=== PATIENT | female | born 1980 | race Caucasian/White ===

== ENCOUNTER 2021-03-20 11:33 | Outpatient (CLI) | payer SELFPAY ==
--- NOTE | ~2021-03-20 | MMUS_ITS ---
EXAMINATION: MM diagnostic sarah BI w mike, US breast BI complete HISTORY: Right breast lump TECHNIQUE: ML, MLO and craniocaudal 3-D tomosynthesis images of both breasts were performed and synth etic 2-D images were generated. Bilateral rotated lateral CC views. CAD analysis was submitted and in terpreted. High resolution complete bilateral breast ultrasound including all 4 quadrants and subareo lar area of was performed. COMPARISON: None BREAST PARENCHYMAL COMPOSITION: The breasts are extremely dense, which lowers the sensitivity of mamm ography. FINDINGS: MAMMOGRAPHIC FINDINGS: There are numerous benign calcifications scattered in both breasts. Bilateral circumscribed breast masses are noted, some with halo sign, likely representing bilateral b reast cysts, including a particularly large up to 5 cm probable upper outer quadrant right breast cys ts corresponding to area of clinical complaint of breast lump. Bilateral complete breast ultrasound e xamination was performed. No malignant calcification, architectural distortion, skin thickening or retraction is detected in ei ther breast. ULTRASOUND: There are numerous bilateral simple and septated and complicated breast cysts, with circumscribed mar gins and with through transmission posterior enhancement and no internal vascularity. An up to 4.6 cm cyst is noted at 10:00 position 7 cm from nipple in the right breast, corresponding to the area of c linical complaint. No suspicious mass or shadowing of either breast is detected. IMPRESSION: 1. Numerous bilateral breast cysts, some simple, some septated and some complicated; no mammographic evidence of malignancy 2. Routine mammographic screening is recommended, with ultrasound as required BI-RADS Category 2: Benign finding(s). Reviewed, dictated and finalized at location A. INE ROUGH ROUNDER IMPRESSION: 1. Numerous bilateral breast cysts, some simple, some septated and some complic ated; no mammographic evidence of malignancy 2. Routine mammographic screening is recommended, with ultrasound as required BI-RADS Category 2: Benign finding(s).
== END 2021-03-20 11:34 | disposition home or self-care (01) ==
PROVIDERS: Visit Provider Advanced Practice Midwife
DX: Z12.31 Encounter for screening mammogram for malignant neoplasm of breast (principal); N63.11 Unspecified lump in the right breast, upper outer quadrant
CPT/HCPCS: 76641; 77062; 77066; G0279

== ENCOUNTER → 2022-03-17 12:43 | Outpatient (CLI) | payer SELFPAY ==
--- NOTE | ~2022-03-17 | US_ITS ---
EXAMINATION: US soft tissue groin RT DATE: 03/17/2022 13:13 INDICATION: Other intra-abdominal and pelvic swelling, mass and lump. TECHNIQUE: Multiple sonographic images of the right inguinal region were obtained. COMPARISON: None. FINDINGS: There is a 1.9 x 0.8 cm mass in right inguinal region. IMPRESSION: 1. Small mass in right inguinal region, which may be a normal lymph node or small hematoma. Reviewed, dictated and finalized at location A. NG TIER IMPRESSION: 1. Small mass in right inguinal region, which may be a normal lymph node or sma ll hematoma.
== END ==
DX: R19.09 Other intra-abdominal and pelvic swelling, mass and lump (principal)
CPT/HCPCS: 76882

== ENCOUNTER 2022-05-19 09:58 | Outpatient (CLI) | payer SELFPAY ==
--- NOTE | ~2022-05-19 | MM_ITS ---
EXAMINATION: MM screening sarah BI w mike HISTORY: Screening TECHNIQUE: Craniocaudal and mediolateral oblique 3-D tomosynthesis images were obtained and synthetic 2-D images were generated. CAD analysis was submitted and interpreted. COMPARISON: Comparison to multiple prior studies sequentially, with oldest reviewed study dated 02/16. BREAST PARENCHYMAL COMPOSITION: The breasts are extremely dense, which lowers the sensitivity of mamm ography FINDINGS: There are scattered benign-appearing bilateral breast calcifications. There are multiple bi lateral breast masses which are obscured by dense fibroglandular tissue. IMPRESSION: 1. Developing bilateral breast masses which are obscured. 2. Complete bilateral breast ultrasound recommended. BI-RADS Category 0: Incomplete: Needs additional imaging evaluation. Reviewed, dictated and finalized at location A. ING INSPECTOR
== END 2022-05-19 09:59 | disposition home or self-care (01) ==
LOC: ANHIMG 10:10
PROVIDERS: PCP Registered Nurse
DX: Z12.31 Encounter for screening mammogram for malignant neoplasm of breast (principal); R92.8 Other abnormal and inconclusive findings on diagnostic imaging of breast
CPT/HCPCS: 77063; 77067

== ENCOUNTER → 2022-05-26 08:24 | Outpatient (CLI) | payer SELFPAY ==
--- NOTE | ~2022-05-26 | CT_ITS ---
EXAMINATION: CT pelvis w con DATE: 05/26/2022 08:49 INDICATION: Right inguinal mass. TECHNIQUE: Computed tomography (CT) of the pelvis was performed with 100 mL Omnipaque 350 intravenous contrast. Automated exposure control and iterative reconstruction technique were employed. The dose- length product was 209.67 mGy-cm. COMPARISON: Ultrasound 03/17/2022 FINDINGS: There is physiologic fluid in the pelvis. There are no dilated loops of bowel. There are no pathologically enlarged lymph nodes. There is a 1.2 x 1.2 cm cyst in right inguinal canal. There is mild lumbar spondylosis. IMPRESSION: 1. 1.2 cm cyst in right inguinal canal, likely ascites in a small hernia. Reviewed, dictated and finalized at location A. E PLUG CUTTER OPERATOR HELPER
== END ==
PROVIDERS: PCP Registered Nurse; Visit Provider Registered Nurse
DX: R19.09 Other intra-abdominal and pelvic swelling, mass and lump (principal)
CPT/HCPCS: 72193; Q9967

== ENCOUNTER → 2022-06-09 09:53 | Outpatient (CLI) | payer SELFPAY ==
--- NOTE | ~2022-06-09 | US_ITS ---
US breast BI complete DATE: 06/09/2022 10:50 INDICATION: Bilateral breast masses reported on May 19, 2022 screening mammogram TECHNIQUE: Real-time and color flow imaging of both complete breasts including all 4 quadrants and razo bareolar areas COMPARISON: May 19, 2022 bilateral screening mammogram March 20, 2021 bilateral diagnostic mammogram and bilateral complete breast ultrasound examination FINDINGS: Again noted are multiple bilateral breast cysts, largest on the right situated at 12-1:00 3 cm from the nipple, measuring up to 1.7 x 6.5 cm. Another right breast cysts at 8-9:00 5 cm from the nipple measures up to 1.6 x 5.4 cm. The largest cyst on the left is situated at 9:00-10:00 5 cm from the nipple, measuring up to 3 x 3.4 x 0.9 cm. No suspicious solid lesion or suspicious shadowing or vascularity is noted. IMPRESSION: BI-RADS Category 2: Benign Recommendation: Routine mammographic screening Reviewed, dictated and finalized at Location A. Reviewed, dictated and finalized at location A. SKEWER
== END ==
PROVIDERS: PCP Registered Nurse
DX: R92.8 Other abnormal and inconclusive findings on diagnostic imaging of breast (principal)
CPT/HCPCS: 76641

== ENCOUNTER 2023-06-08 08:17 | Outpatient (CLI) | payer SELFPAY ==
--- NOTE | ~2023-06-08 | MMUS_ITS ---
EXAMINATION: MM diagnostic sarah BI w mike, US breast BI complete HISTORY: Palpable right breast lump TECHNIQUE: Additional 3-D tomosynthesis images of the breasts were performed and synthetic 2-D images were generated. CAD analysis was submitted and interpreted. High resolution complete bilateral breas t ultrasound was performed. COMPARISON: Comparison to multiple prior studies sequentially, with oldest reviewed study dated 02/16. BREAST PARENCHYMAL COMPOSITION: Dense: The breasts are extremely dense, which lowers the sensitivity of mammography. FINDINGS: MAMMOGRAPHIC FINDINGS: There are multiple masses in both breasts which are obscured by dense fibroglandular tissue. There ar e scattered benign-appearing breast calcifications. ULTRASOUND: Complete bilateral US of all 4 quadrants of the breasts and retroareolar region was reviewed. There a re in numerable simple cysts of both breasts corresponding to masses seen on mammography. No suspicio us solid masses to suggest malignancy. IMPRESSION: 1. No evidence for malignancy in either breast. Benign findings. 2. Routine yearly screening mammogram and regular clinical breast examination are recommended. BI-RADS Category 2: Benign finding(s). Reviewed, dictated and finalized at location A. EL LOADER AND CLEANER IMPRESSION: 1. No evidence for malignancy in either breast. Benign findings. 2. Routine yearly screening mammogram and regular clinical breast examination a re recommended. BI-RADS Category 2: Benign finding(s).
== END 2023-06-08 08:18 | disposition home or self-care (01) ==
PROVIDERS: PCP Nurse Practitioner Obstetrics & Gynecology; Visit Provider Obstetrics & Gynecology
DX: N63.0 Unspecified lump in unspecified breast (principal)
CPT/HCPCS: 76641; 77062; 77066; G0279

== ENCOUNTER 2024-07-19 15:15 | Outpatient (CLI) | payer SELFPAY ==
--- NOTE | ~2024-07-19 | MM_ITS ---
EXAMINATION: MM screening [facility] BI w mike HISTORY: Screening TECHNIQUE: Craniocaudal and mediolateral oblique 3-D tomosynthesis images were obtained and synthetic 2-D images were generated. CAD analysis was submitted and interpreted. COMPARISON: Comparison to multiple prior studies sequentially, with oldest reviewed study dated 02/16. BREAST PARENCHYMAL COMPOSITION: Dense: The breasts are extremely dense, which lowers the sensitivity of mammography. FINDINGS: Stable bilateral breast masses which are obscured by dense fibroglandular tissue. These wer e previously characterized as a simple cyst by ultrasound. There is no evidence of suspicious mass, c alcification, or architectural distortion to suggest malignancy in either breast. There has been no s uspicious interval change. IMPRESSION: 1. No mammographic evidence of malignancy. 2. Recommend routine screening mammography in one year. BI-RADS Category 2: Benign finding(s). Reviewed, dictated and finalized at location A.
--- OUTSIDE RECORDS SUMMARY | 2024-07-19 15:30 | XMS_ITS | Clinical Summary ---
Author Organization [facility] Address [address] [place] [address] Care Team Providers Care Plastics Seasoner Operator Name Role Phone Lynda Pettit [facility] Primary Care Provider [phone] Allergies No known active allergies Medications Ferrous Sulfate (IRON OR) Take by mouth daily. Active Active Problems Problem Noted Date Diagnosed Date Iron deficiency anemia, unsp ecified iron deficiency anemia type 05/15/2022 Right groin mass 05/15/2022 Menorrhagia with regular cycle 05/15/2022 Family History Medical History Relation Comments Depression Daughter other Father High Cholesterol Breast Cancer Maternal Aunt Liver cancer Maternal Aunt No Known Problems Maternal Grandfather No Known Problems Maternal Grandmother Brain cancer Mother Gliobastoma Alzheimers Paternal Grandmother Depression Son Relation Status Comments Brother Alive Daughter Alive Father Alive Maternal Aunt Maternal Grandfather Maternal Grandmother Mother Paternal Grandfather Paternal Grandmother Sister Alive Son Alive Social History Tobacco Use Types Packs/Day Years Used Date Smoking Tobacco: Never Passive Smoke Exposure: Never Smokeless Tobacco: Never Tobacco Cessation:Counseling Given: Not Answered Alcohol Use Standard Drinks/Week Comments Yes 0 (1 standard drink = 0.6 oz pur e alcohol) PHQ-2 Answer Date Recorded Patient Health Questionnaire-2 Score 2 05/14/2022 Comments No Sex and Gender Information Value Date Recorded Sex Assigned at Not on file Legal 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 Gender Identity Not on file Sexual Orientation Not on file Last Filed Vital Signs Vital Sign Reading Time Taken Comments Blood Pressure 98/60 07/11/2023 8:43 AM CDT Pulse 89 07/11/2023 8:43 AM CDT Temperature 36.7 C (98.1 F) 07/11/2023 8:43 AM CDT Respiratory Rate 18 07/11/2023 8:43 AM CDT Oxygen Saturation 98% 07/11/2023 8:43 AM CDT Inhaled Oxygen Concentration - - Weight 59.9 kg (132 lb) 07/11/2023 8:43 AM CDT Height 172.7 cm (5' 8 ) 07/11/2023 8:43 AM CDT Body Mass Index 20.07 07/11/2023 8:43 AM CDT Plan of Treatment Health Maintenance Due Date Last Done Comments Annual Physical 1981 Hepatitis C 1996 DTaP, Tdap and Td Vaccines (1 - Tdap) 1997 Hepatitis B Vaccines (1 of 3 - 19+ 3-dose series) 1997 Cervical Cancer Screening Pap Smear (Age 30 to 64) Every 3 Years 04/24/2012 04/24/2009, 02/29/2008 Colorectal Cancer Screening Colonoscopy (10 Years) 08/27/2019 08/26/2009 COVID-19 Vaccine ( season) 2023 PHQ-2 (Physician Sun'Aq) 04/18/2024 Mammogram Screening 06/09/2024 06/09/2022, Cervical Cancer Screening Pap with HPV Testing (Age 30 to 64) Every 5 Years 02/27/2026 02/27/2021, 02/17/2016, 02/17/2016, Additional history exists Cervical Cancer Screening with HPV 02/27/2026 Meningococcal B Vaccine Aged Out No l onger eligible based on patient's age to complete this topic Meningococcal Vaccine Aged Out No krystyna maye eligible based on patient's age to complete this topic Pneumococcal Vaccine: Pediatrics (0 to 5 Years) and At-Risk Patients (6 to 64 Years) Aged Out No longer eligible based on patient's age to complete this topic RSV Immunizations Under 20 Months Aged Out No longer eligible based on patient's age to complete this topic Procedures Procedure Name Priority Date/Time Associated Diagnosis Comments MAMMOGRAM GENERIC (SCAN ORDER) 06/09/2022 OUTSIDE CYTOPATH CERV/VAG IN TERPRET (PAP) 02/27/2021 COLONOSCOPY/EGD GENERIC (SCA N ORDER) 08/26/2009 OUTSIDE CYTOPATH CERV/VAG IN TERPRET (PAP) (SCAN ORDER) 04/24/2009 from Last 3 Months or Most Recently Relevant to Health Maintenance Results * MAMMOGRAM GENERIC (06/09/2022) Anatomical Region Laterality Modality Other 06/09/2022 Experience Headphones Scanned SCANNING Final Resu lt * PAP SMEAR WITH HPV (02/27/2021) 02/27/2021 Result Refocus Imaging Scanned SCANNING Final Resu lt * COLONOSCOPY/EGD GENERIC (08/26/2009) 08/26/2009 Experience Headphones Scanned SCANNING Final Resu lt * PAP SMEAR (04/24/2009) 04/24/2009 Result Refocus Imaging Scanned SCANNING Final Resu lt from Last 3 Months or Most Recently Relevant to Health Maintenance Care Teams Plastics Seasoner Operator Relationship Specialty Start Date End Date Lynda Pettit FNP [address] [place] [address] [place] [address] PCP - General Nurse Practitioner Family 05/15/22
--- OUTSIDE RECORDS SUMMARY | 2024-07-19 15:30 | XMS_ITS | Clinical Summary ---
Author Organization [facility] Address [address] [place] [id number] Care Team Providers Care Scientologist Name Role Phone Lynda Pettit NP Primary Care Provider [phone] Allergies No known active allergies Medications No known medications Active Problems No known active problems Surgical History Surgery Date Site/Laterality Comments TONSILLECTOMY 04/18/1984 - 04/17/1985 DILATION AND CURETTAGE OF UTERUS Medical History Medical History Date Comments Generalized headaches Tension headache Family History Medical History Relation Name Comments Brain cancer Mother Breast cancer Mother's Sister Prostate cancer Paternal Grandmother Relation Name Status Comments Mother Mother's Sister Paternal Grandmother Social History Tobacco Use Types Packs/Day Years Used Date Smoking Tobacco: Never Smokeless Tobacco: Never Tobacco Cessation:Counseling Given: Not Answered AUDIT-C Answer Date Recorded Q1: How often do you have a drink containing alc ohol? 2-4 times a month 08/03/2023 Q2: How many drinks containi ng alcohol do you have on a typical day when you are drinking? 1 or 2 08/03/2023 Q3: How often do you have si x or more drinks on one occasion? Monthly 08/03/2023 Personal Safety Answer Date Recorded Getting School Help Needed Not on file 06/30 Comments No Sex and Gender Information Value Date Recorded Sex Assigned at Not on file Legal Sex Female 11:46 AM CDT Gender Identity Not on file Sexual Orientation Not on file Obstetrics History Last Filed Vital Signs Vital Sign Reading Time Taken Comments Blood Pressure - - Pulse - - Temperature - - Respiratory Rate - - Oxygen Saturation - - Inhaled Oxygen Concentration - - Weight 59 kg (130 lb) 08/03/2023 7:57 AM CDT Height 172.7 cm (5' 8 ) 08/03/2023 7:57 AM CDT Body Mass Index 19.77 08/03/2023 7:57 AM CDT Plan of Treatment Health Maintenance Due Date Last Done Comments Breast Cancer Screening-Mammogram 1978 Cervical Cancer Screening 1978 Colon Cancer Screening-Colonoscopy 1978 Depression Screening 1978 Hepatitis C Screening 1978 DTaP/Tdap/Td Vaccine (1 - Tdap) 1989 Hepatitis B Screening 1996 Regular Well Visit/Exam 18-64 1996 Influenza Vaccine (#1) 2023 HPV Vaccines Aged Out No longer eligi ble based on patient's age to complete this topic Pneumococcal vaccine <65 Aged Out No longer eligible based on patient's age to complete this topic Care Teams Scientologist Relationship Specialty Start Date End Date Lynda Pettit NP [address] [place] [address] [place] [address] PCP - General Family Practice 07/01/23
--- OUTSIDE RECORDS SUMMARY | 2024-07-19 15:30 | XMS_ITS | Referral Summary ---
Author Organization [facility] Address [address] [place] [id number] Care Team Providers Care Bingo Clerk Name Role Phone Lynda Pettit NP Primary Care Provider [phone] [phone] Allergies No known active allergies Medications No known medications Active Problems No known active problems Social History Tobacco Use Types Packs/Day Years [...] 08/03/2023 7:57 AM CDT Plan of Treatment Not on file Care Teams Bingo Clerk Relationship Specialty Start Date End Date Lynda Pettit NP [address] [place] [address] [place] [address] PCP - General Family Practice 07/01/23
== END 2024-07-19 15:16 | disposition home or self-care (01) ==
PROVIDERS: PCP Nurse Practitioner Obstetrics & Gynecology; Visit Provider Nurse Practitioner Obstetrics & Gynecology
DX: Z12.31 Encounter for screening mammogram for malignant neoplasm of breast (principal)
CPT/HCPCS: 77063; 77067